=== PATIENT | female | born 1960 ===

== ENCOUNTER 2017-01-20 14:11 | Inpatient (IN) | payer MEDICARE, MEDICAID ==
[2017-01-20 14:18] VITALS: O2SAT 100
[2017-01-20] MEDS ORDERED: Sodium Chloride 0.9% 1,000 ML IV STA ×3 (14:39→19:37)
--- NOTE | 2017-01-20 14:44 | ED PDOC ---
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 Pt states she took meds because she wanted to sleep. Denies SI) Onset/Duration Of Symptoms: Hrs (1) Current Symptoms Are (Timing): Still Present Suicide/Self Injury Attempted (Context): Ingestion Severity: Moderate Past Medical History Vital Signs: Last Vital Signs Temp 97.4 F L 01/20/17 14:12 Pulse 65 01/20/17 14:12 Resp 14 01/20/17 14:12 BP 86/65 L 01/20/17 14:12 Pulse Ox 100 01/20/17 14:12 - Medical History PMH: Diabetes - Family History Family History: States: Unknown Family Hx - Home Medications Home Medications: Ambulatory Orders Medication Instructions Recorded Albuterol HFA [Ventolin HFA 90 2 puff IH Q4H PRN 01/20/17 mcg/actuation (8 g)] Alprazolam [Xanax] 2 mg PO BID 01/20/17 Alprazolam [Xanax] 4 mg PO HS 01/20/17 Divalproex [Depakote ER] 1,000 mg PO HS 01/20/17 Divalproex [Depakote ER] 500 mg PO DAILY 01/20/17 FLUoxetine [Prozac] 20 mg PO DAILY 01/20/17 Fluticasone/Salmeterol 500/50 1 puff IH Q12H 01/20/17 [Advair Diskus 500/50] Levothyroxine [Synthroid] 150 mcg PO DAILY 01/20/17 Losartan [Cozaar] 50 mg PO DAILY 01/20/17 Ranitidine HCl [Zantac] 150 mg PO HS 01/20/17 Saxagliptin HCl [Onglyza] 5 mg PO DAILY 01/20/17 Sertraline [Zoloft] 100 mg PO BID 01/20/17 Sulindac [Sulindac] 150 mg PO BID 01/20/17 Tiotropium [Spiriva] 18 mcg IH DAILY 01/20/17 buPROPion XL [Wellbutrin XL] 150 mg PO DAILY 01/20/17 oxyCODONE [oxyCODONE Immediate 30 mg PO Q4H PRN 01/20/17 Release Tab] - Allergies Allergies/Adverse Reactions: Allergies Allergy/AdvReac Type Severity Reaction Status Date / Time No Known Allergies Allergy Verified 01/20/17 14:12 Review of Systems ROS Statement: Except As Marked, All Systems Reviewed And Found Negative Physical Exam - Reviewed Nursing Documentation Reviewed: Yes Vital Signs Reviewed: Yes - Physical Exam Appears: Positive for: Non-toxic, No Acute Distress Head Exam: Positive for: ATRAUMATIC, NORMAL INSPECTION, NORMOCEPHALIC Skin: Positive for: Normal Color, Warm, DRY Eye Exam: Positive for: EOMI, Normal appearance, PERRL ENT: Positive for: Normal ENT Inspection Neck: Positive for: Normal, Painless ROM Cardiovascular/Chest: Positive for: Regular Rate, Rhythm Respiratory: Positive for: CNT, Normal Breath Sounds Gastrointestinal/Abdominal: Positive for: Normal Exam, Bowel Sounds, Soft Back: Positive for: Normal Inspection Extremity: Positive for: Normal ROM Neurologic/Psych: Positive for: Oriented. Negative for: Alert (Drowsy arousable ), Motor/Sensory Deficits - Laboratory Results Result Diagrams: 01/20/17 14:54 01/20/17 14:54 - ECG O2 Sat by Pulse Oximetry: 100 ED OBSERVATION Date of observation admission: 01/20/17 Time of observation admission: 16:41 - Observation admission statement Patient is being placed in observation because:: Drug ingestion Disposition - Clinical Impression Clinical Impression: Benzodiazepine misuse - Patient ED Disposition Is Patient to be Admitted: Transfer of Care - Disposition Disposition: Transfer of Care Disposition Time: 18:54 Condition: FAIR Patient Signed Over To: Naresh Toussaint
[2017-01-20 15:08] LABS: BASO # 0.1 K/uL (0.0-0.2); BASO % 2.3 % (0.0-2.0); EOS # 0.2 K/uL (0.0-0.7); EOS % 3.3 % (0.0-4.0); HEMATOCRIT 28.1 % (34.0-47.0); LYMPH # 2.4 K/uL (1.0-4.3); LYMPH % 49.5 % (20.0-40.0); MEAN CELL VOLUME 67.3 fl (81.0-99.0); MEAN CORPUSCULAR HEMOGLOBIN 20.9 pg (27.0-31.0); MEAN CORPUSCULAR HGB CONC 31.1 g/dL (33.0-37.0); MONO # 0.5 K/uL (0.0-0.8); MONO % 9.4 % (0.0-10.0); NEUT # 1.7 K/uL (1.8-7.0); NEUT % 35.5 % (50.0-75.0); NRBC % 0.1 % (0.0-0.0); RED CELL DISTRIBUTION WIDTH 21.5 % (11.5-14.5); WHITE BLOOD COUNT 4.9 K/uL (4.8-10.8)
[2017-01-20 15:20] LABS: ALCOHOL SERUM < 10 mg/dl (0-10); ALKALINE PHOSPHATASE 71 U/L (38-126); ALT/SGPT 30 U/L (9-52); AST/SGOT 29 U/L (14-36); BILIRUBIN,TOTAL 0.3 mg/dl (0.2-1.3); BLOOD UREA NITROGEN 9 mg/dl (7-17); CALCIUM 9.4 mg/dL (8.4-10.2); CARBON DIOXIDE 24 mmol/L (22-30); CHLORIDE 107 mmol/L (98-107); GFR AFRICAN-AMERICAN > 60; GLUCOSE,RANDOM 67 mg/dL (65-105); POTASSIUM 3.9 MMOL/L (3.6-5.0); SODIUM 143 mmol/l (132-148); TOTAL PROTEIN 7.6 G/DL (6.3-8.2)
--- NOTE | 2017-01-20 16:21 | RAD ---
HISTORY: cough COMPARISON: Comparison is made to the previous study dated 06/14/2012 FINDINGS: LUNGS: Technically suboptimal study. Suspicious for mild pulmonary vascular congestion. PLEURA: No significant pleural effusion identified, no pneumothorax apparent. CARDIOVASCULAR: Normal. OSSEOUS STRUCTURES: No significant abnormalities. VISUALIZED UPPER ABDOMEN: Normal. OTHER FINDINGS: None. IMPRESSION: Suboptimal study. Suspicious for pulmonary vascular congestion.
--- NOTE | 2017-01-20 19:30 | ED PDOC ---
- Laboratory Results Result Diagrams: 01/20/17 14:54 01/20/17 14:54 - ECG O2 Sat by Pulse Oximetry: 100 (RA) Pulse Ox Interpretation: Normal Medical Decision Making Medical Decision Making: Time: 19:00 --Pending revaluation. Time: 8:40 --Patient was evaluated by crisis and admitted for further stabilizing of depression. Medically stable for psychiatric admission Scribe Attestation: Documented by Addie Michael, acting as a scribe for Naresh Toussaint MD. Provider Scribe Attestation: All medical record entries made by the Scribe were at my direction and personally dictated by me. I have reviewed the chart and agree that the record accurately reflects my personal performance of the history, physical exam, medical decision making, and the department course for this patient. I have also personally directed, reviewed, and agree with the discharge instructions and disposition. Disposition Counseled Patient/Family Regarding: Studies Performed, Diagnosis - Clinical Impression Clinical Impression: Benzodiazepine misuse, Depression - POA Present On Arrival: None - Disposition Disposition: Routine/Home Disposition Time: 19:45 Condition: FAIR
[2017-01-20] MEDS ORDERED: Magnesium Hydroxide Susp 30 ml UD PO PRN (21:33)
[2017-01-20] MEDS ORDERED: Alum-Mag Hydrox-Simethicone Susp (30 mL) PO PRN (21:33)
[2017-01-20] MEDS ORDERED: DiphenhydrAMINE 50 mg/ml Inj IM PRN (21:33)
[2017-01-21 07:47] LABS: BASO # 0.1 K/uL (0.0-0.2); BASO % 1.3 % (0.0-2.0); EOS # 0.2 K/uL (0.0-0.7); EOS % 4.2 % (0.0-4.0); HEMATOCRIT 30.1 % (34.0-47.0); LYMPH # 2.5 K/uL (1.0-4.3); LYMPH % 48.6 % (20.0-40.0); MEAN CELL VOLUME 67.3 fl (81.0-99.0); MEAN CORPUSCULAR HEMOGLOBIN 20.9 pg (27.0-31.0); MEAN PLATELET VOLUME 9.6 fl (7.2-11.7); MONO # 0.4 K/uL (0.0-0.8); MONO % 7.4 % (0.0-10.0); NEUT % 38.5 % (50.0-75.0); RED CELL DISTRIBUTION WIDTH 22.2 % (11.5-14.5); WHITE BLOOD COUNT 5.1 K/uL (4.8-10.8)
[2017-01-21 07:55] LABS: IRON 20 ug/dL (37-170)
[2017-01-21 08:06] LABS: T4 3.38 ug/dl (5.5-11.0)
[2017-01-21 08:20] LABS: THYROID STIMULATING HORMONE 33.6 mIU/ML (0.46-4.68)
[2017-01-21] MEDS ORDERED: Albuterol HFA 90 mcg/actuation (8 g) IH PRN (10:53)
--- NOTE | 2017-01-21 12:48 | CP.PCM.CON ---
History of Present Illness - History of Present Illness History of Present Illness: Hospitalist Consult H&P (Patient was seen and examined with her Nurse present at 12:10 PM 01/21/17 [id number]) 56 year old female who presented with her family to [facility] ER after ingesting unknown substance 1 hour prior to her arrival. Patient denied SI. UDS in the ER indicated (+) Benzodiazepine. She was admitted to in-patient Psychiatry Unit for further management. ROS: NO chest pain, NO palpitations, NO SOB, NO dysphagia/odynophagia ("Thyroid Pain " present off and on for some time), NO abdominal pain, NO n/v/d/c, NO burning/ pain with unrination, NO lightheadedness/dizziness, NO headache, NO new changes in vision, NO new changes in hearing, (+) Numbness in the bilateral hands that comes and goes for some time, (+) Edema of legs (however none present on exam) PMHx: Depression, DM 2, Asthma, HTN, Hypothyroidism, GERD, Anemia likely secondary to Iron Deficiency, Rectal Bleeding PSHx: Bilatera Breast Augmentation, Liposuction, Left Shoulder Unspecified Surgery, Right Thumb Unsecified Surgery ALL: NKDA, NO known food allergies Medications: Please see list below Social: NOT working, (+) Tobacco 3 cig/day for 44 years, NO alcohol, NO illicit drugs Family Hx: Mom, Dad, and Brother all have DM 2 Exam: HEENT: NCA, EOMI, PERRLA, NO cervical lymphadenopathy, NO thyromegaly, Oral mucos and Nasal Turbinates are moist, NO pharyngeal erythema/exudate Cardio: NS1 and NS2, NO M/R/G Respiratory: CTA B/L, NO R/R/W GI: BSx4, Soft, NT, ND, NO HSM, NO guarding/rebound tenderness Ext: Pulses are strong and equal, NO edema, Capillary Refill is 2 seconds Neuro: CN II through XII are grossly intact Assessment and Plan: 1). Hx DM 2 Oglyza 5 mg PO 1x/day at home but this is not carried in our pharmacy. Therefore Januvia 100 mg PO 1x/day 2). Hx Asthma Aluberol 2 puff INH Q4H PRN SOB/Wheezing Spiriva 18 mcg Handihaler PO INH 1x/day Chest X Ray upon admission was suspicious for pulmonary vascular congestion but on my exam the lungs were CTA B/L NO R/R/W EKG was NSR at 58 bpm 3). Hx HTN Cozaar 50 mg PO 1x/day 4). Hyperlipidemia Lipid Panel done on 01/21/17 indicated LDL not at goal at 206 therefore Atorvastatin 10 mg PO 1x/day has been ordered and patient will need new Rx for this upon her discharge 5). Hx Hypothyroidism Low T4, Low Free T4, Low T3, and High TSH. Could this be secondary to patient not taking her medication at home? Levothyroxine 150 mcg PO 1x/day and she will need to have the thyroid blood work repeated in 1 month time. 6). Hx GERD She is on Zantac 150 mg PO QHS but this is not carried by our pharmacy therefore Pepcid 20 mg PO 1x/day 7). Anemia Likely Secondary to Iron Deficiency which is likely Secondary to History of Rectal Bleeding Patient states that she had a Colonoscopy 2 months ago by an unspecified doctor but could not tell me the results She will need to be instructed to follow up with this physician upon her discharge FeSO4 325 mg PO BID ordered for now 8). Depression Treatment as per Psychiatry Review of Systems - Review of Systems Review of Systems: Please see above Past Patient History - Past Social History Smoking Status: Light Smoker < 10 Cigarettes Daily - CARDIAC Hx Cardiac Disorders: Yes Hx Hypertension: Yes - PULMONARY Hx Asthma: Yes - NEUROLOGICAL Hx Vertigo: Yes - HEENT Hx Cataracts: Yes (?) - ENDOCRINE/METABOLIC Hx Endocrine Disorders: Yes Hx Diabetes Mellitus Type 2: Yes - PSYCHIATRIC Hx Anxiety: Yes Hx Depression: Yes Hx Substance Use: No - SURGICAL HISTORY Hx Surgeries: Yes Other/Comment: Breast cysts - ANESTHESIA Hx Anesthesia: Yes Hx Anesthesia Reactions: No Meds Allergies/Adverse Reactions: Allergies Allergy/AdvReac Type Severity Reaction Status Date / Time No Known Allergies Allergy Verified 01/20/17 14:12 - Medications Medications: Current Medications Acetaminophen (Tylenol 325mg Tab) 650 mg PO Q4 PRN PRN Reason: PAIN 1-7 Last Admin: 01/20/17 22:17 Dose: 650 mg Al Hydrox/Mg Hydrox/Simethicone (Maalox Plus 30 Ml) 30 ml PO Q4 PRN PRN Reason: Dyspepsia Albuterol (Ventolin Hfa 90 Mcg/Actuation (8 G)) 2 puff IH Q4H PRN PRN Reason: Shortness of Breath Atorvastatin Calcium (Lipitor) 10 mg PO DAILY DARCY Diphenhydramine HCl (Benadryl) 50 mg PO Q6 PRN PRN Reason: Extrapyramidal Symptoms Diphenhydramine HCl (Benadryl) 50 mg PO HS PRN PRN Reason: Sleep Last Admin: 01/20/17 22:21 Dose: 50 mg Diphenhydramine HCl (Benadryl) 50 mg IM Q6 PRN PRN Reason: Extrapyramidal S/S Unable PO Famotidine (Pepcid) 20 mg PO HS DARCY Ferrous Sulfate (Feosol) 325 mg PO BID DARCY Haloperidol (Haldol) 5 mg PO Q4 PRN PRN Reason: Agitation Haloperidol Lactate (Haldol) 5 mg IM Q4 PRN PRN Reason: Agitation, Unable to Take PO Insulin Human Regular (Humulin R) 0 units SC ACHS [facility] Levothyroxine Sodium (Synthroid) 150 mcg PO DAILY@0630 [facility] Lorazepam (Ativan) 2 mg PO Q4 PRN PRN Reason: Anxiety/Agitation Lorazepam (Ativan) 2 mg IM Q4 PRN PRN Reason: Anxiety/Agitation,Unable PO Losartan Potassium (Cozaar) 50 mg PO DAILY [facility] Magnesium Hydroxide (Milk Of Magnesia) 30 ml PO HS PRN PRN Reason: Constipation Sertraline HCl (Zoloft) 50 mg PO DAILY [facility] Last Admin: 01/21/17 09:57 Dose: 50 mg Sitagliptin Phosphate (Januvia) 100 mg PO DAILY [facility] Tiotropium [place]mond[place] (Spiriva) 18 mcg IH DAILY [facility] Physical Exam - Constitutional Additional comments: Please see above Results - Vital Signs Recent Vital Signs: Last Vital Signs Temp 97.7 F 01/21/17 06:00 Pulse 66 01/21/17 06:00 Resp 18 01/21/17 06:00 BP 109/69 01/21/17 06:00 Pulse Ox 100 01/20/17 21:55 - Labs Result Diagrams: 01/21/17 07:10 01/20/17 14:54 Labs: Laboratory Results - last 24 hr 01/20/17 01/21/17 01/21/17 20:53 06:34 07:10 WBC 5.1 RBC 4.48 Hgb 9.4 L Hct 30.1 L MCV 67.3 L MCH 20.9 L MCHC 31.0 L RDW 22.2 H Plt Count 246 MPV 9.6 Neut % (Auto) 38.5 L Lymph % (Auto) 48.6 H Rutherford % (Auto) 7.4 Eos % (Auto) 4.2 H Baso % (Auto) 1.3 Neut # 2.0 Lymph # 2.5 Rutherford # 0.4 Eos # 0.2 Baso # 0.1 POC Glucose (mg/dL) 124 H 90 Hemoglobin A1c 6.3 Iron 20 L TIBC 394 % Saturation 5 L Ferritin 5.9 Triglycerides 132 Cholesterol 307 H LDL Cholesterol Direct 206 H HDL Cholesterol 44 Vitamin B12 772 Free T4 0.39 L Thyroxine (T4) 3.38 L Total T3 0.474 L TSH 3rd Generation 33.60 H 01/21/17 11:45 WBC RBC Hgb Hct MCV MCH MCHC RDW Plt Count MPV Neut % (Auto) Lymph % (Auto) Rutherford % (Auto) Eos % (Auto) Baso % (Auto) Neut # Lymph # Rutherford # Eos # Baso # POC Glucose (mg/dL) 87 Hemoglobin A1c Iron TIBC % Saturation Ferritin Triglycerides Cholesterol LDL Cholesterol Direct HDL Cholesterol Vitamin B12 Free T4 Thyroxine (T4) Total T3 TSH 3rd Generation
[2017-01-21] MEDS: Insulin Regular 100 units/ml SC SCH ×2 (16:18→21:45)
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
--- NOTE | 2017-01-21 18:11 | CARD ---
APPROVED REPORT EKG Measurement Heart [id number] <Conclusion> Sinus bradycardia Nonspecific T wave abnormality Abnormal ECG
[2017-01-21 23:10] LABS: FOLATE 6.7 ng/mL
[2017-01-22] MEDS: Levothyroxine 150 MCG TAB PO SCH (06:48)
[2017-01-22] MEDS: Insulin Regular 100 units/ml SC SCH ×4 (09:11→21:29)
[2017-01-22] MEDS: buPROPion SR 150 MG TABLET PO SCH (09:12)
[2017-01-22] MEDS: Tiotropium 18 mcg Cap For Inhalation IH SCH (09:12)
--- NOTE | 2017-01-22 11:03 | PCM.PYCHPN ---
Psychiatric Progress Note - Psychiatric Progress Note Patient seen today, length of contact: with guinean speaking staff Patient Chief Complaint: i want to go home Problems Identified/Issues Discussed: pt minimizing her need for treatment. has submitted a 48 hour notice. she is waiting for screening for [facility] [place]. pt without behavioral disturbance on the unit. Medication Change: No Medical Record Reviewed: Yes Consults ordered or reviewed: dr. londono following pt, aware of thyroid studies Mental Status Examination - Cognitive Function Orientation: Person, Place, Situation, Time Memory: Intact Attention: WNL Concentration: WNL Association: WNL Fund of Knowledge: WN Decription of patient's judgement and insights: poor - Mood Mood: Depressed - Affect Affect: Broad - Speech Speech: Appropriate - Formal Thought Process Formal Thought Process: No Impairment Psychotic Thoughts and Behaviors: denies a/v hallucinations - Suicidal Ideation Suicidal Ideation: No Plan: pt is denying suicidal thoughts, but recent suicidal behaviors - Homicidal Ideation Homicidal Ideation: No Goal/Treatment Plan - Goal/Treatment Plan Need for Continued Stay: Remain at risks for inpatient hospitalization, Severe functional impairment Progress Toward Problem(s) and Goals/Treatment Plan: major depression recurrent pt to be screened by [facility] [place] as she is a potential danger to self and has signed a 48 hour notice Estimated Date of D/C: 01/23/17
[2017-01-22 15:51] VITALS: RESP 20
[2017-01-22 22:01] LABS: URINE BILIRUBIN NEGATIVE (NEGATIVE); URINE BLOOD NEGATIVE (NEGATIVE); URINE COLOR STRAW (YELLOW); URINE GLUCOSE (UA) NEG (Normal); URINE KETONE NEGATIVE (NEGATIVE); URINE LEUKOCYTE ESTERASE NEG Leu/uL (Negative); URINE PROTEIN NEGATIVE (NEGATIVE); URINE UROBILINOGEN 0.2-1.0 mg/dL (0.2-1.0); WBC URINE < 1 /hpf (0-5)
[2017-01-23] MEDS: Levothyroxine 150 MCG TAB PO SCH (06:15)
[2017-01-23] MEDS: Insulin Regular 100 units/ml SC SCH ×4 (06:35→21:28)
[2017-01-23] MEDS: buPROPion SR 150 MG TABLET PO SCH (08:39)
[2017-01-23] MEDS: Tiotropium 18 mcg Cap For Inhalation IH SCH (08:39)
--- NOTE | 2017-01-23 12:37 | PCM.PYCHPN ---
Psychiatric Progress Note - Psychiatric Progress Note Patient seen today, length of contact: with [place] speaking staff Patient Chief Complaint: i feel much better Problems Identified/Issues Discussed: pt has retracted her 48 hour notice. she states she feels better than when she was admitted. states all her suicidal behaviors were in past when she was using cocaine. she does report using while in [place] ago, but only "once" she is more interactive and less irritable today. she states she has outpt providers here in [place]. she reports fair sleep. Medication Change: No Medical Record Reviewed: Yes Mental Status Examination - Cognitive Function Orientation: Person, Place, Situation, Time Memory: Intact Attention: WNL Concentration: WNL Association: WNL Fund of Knowledge: WNL Decription of patient's judgement and insights: improved i/j - Mood Mood: Depressed - Affect Affect: Broad - Speech Speech: Appropriate - Formal Thought Process Formal Thought Process: No Impairment Psychotic Thoughts and Behaviors: denies a/v hallucinations - Suicidal Ideation Suicidal Ideation: No - Homicidal Ideation Homicidal Ideation: No Goal/Treatment Plan - Goal/Treatment Plan Need for Continued Stay: Remain at risks for inpatient hospitalization, Severe functional impairment Progress Toward Problem(s) and Goals/Treatment Plan: major depression recurrent continue current treatment Estimated Date of D/C: 01/23/17
[2017-01-24 05:59] VITALS: BP 94/60; PULSE 75; TEMP 97.5
[2017-01-24] MEDS: Insulin Regular 100 units/ml SC SCH ×2 (06:34→12:36)
[2017-01-24] MEDS: Tiotropium 18 mcg Cap For Inhalation IH SCH (08:36)
[2017-01-24] MEDS: buPROPion SR 150 MG TABLET PO SCH (08:37)
[2017-01-24] MEDS: Levothyroxine 150 MCG TAB PO SCH (08:41)
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
== END 2017-01-24 13:40 | disposition home or self-care (01) | DRG 885 ==
LOC: H.ER 14:11 → H.EROBSV 16:40 → OBSVTOIN 19:28 → INTOOBSV 19:28 → H.EROBSV 19:45 → H.ERHOLD 19:45 → OBSVTOIN 20:31 → H.ERHOLD 20:41 → H.STEP 21:07
PROVIDERS: ADMIT Psychiatry & Neurology Psychiatry; ATTEND Psychiatry & Neurology Psychiatry
PROC: GZ51ZZZ Individual Psychotherapy, Behavioral (ICD-10-PCS; 2017-01-20)
PROC: GZHZZZZ Group Psychotherapy (ICD-10-PCS; principal; 2017-01-21)
DX: F33.9 Major depressive disorder, recurrent, unspecified (principal); E11.9 Type 2 diabetes mellitus without complications; I10 Essential (primary) hypertension; E03.9 Hypothyroidism, unspecified; D50.9 Iron deficiency anemia, unspecified; E78.5 Hyperlipidemia, unspecified; J45.909 Unspecified asthma, uncomplicated; Z91.5 Personal history of self-harm; Z87.891 Personal history of nicotine dependence; Z79.899 Other long term (current) drug therapy; K21.9 Gastro-esophageal reflux disease without esophagitis

== ENCOUNTER 2017-02-17 19:05 | Emergency (ER) | payer MEDICARE, OTHER ==
[2017-02-17 19:13] VITALS: BP 107/81; PULSE 96; RESP 16; TEMP 98.4; O2SAT 97
--- NOTE | 2017-02-17 20:34 | ED PDOC ---
HPI: Psych/Substance Abuse Time Seen by Provider: 02/17/17 19:29 Chief Complaint (Nursing): Psychiatric Evaluation Chief Complaint (Provider): Psych Eval History Per: Patient, EMS History/Exam Limitations: no limitations Associated Symptoms: denies: Suicidal Thoughts Additional Complaint(s): Luciana Zavala is a 56 y/o female presenting to the ER on 02/17/2017 via BLS for a psychiatric evaluation. Per EMS, patient is brought in after her mother and sister had concerns the patient wanted to kill herself. She denies any suicidal or homicidal ideation, or any other psychiatric/medical complaints. Per patient , she reports she routinely sees a psychiatrist. She additionally reports she is on medications which helps her sleep at night. Of note, the patient's mother has lost a child in the past due to drug abuse, prompting her to call 911 whenever she expresses concerns for the patient. Past Medical History Reviewed: Historical Data, Nursing Documentation, Vital Signs Vital Signs: Last Vital Signs Temp 98.4 F 02/17/17 19:06 Pulse 96 H 02/17/17 19:06 Resp 16 02/17/17 19:06 BP 107/81 02/17/17 19:06 Pulse Ox 97 02/17/17 19:06 - Medical History PMH: Anxiety, Asthma, Bipolar Disorder, Depression, Diabetes, HTN, Hypercholesterolemia, Hyperthyroidism - Surgical History Surgical History: No Surg Hx - Family History Family History: States: Unknown Family Hx - Home Medications Home Medications: Ambulatory Orders Medication Instructions Recorded Albuterol HFA [Ventolin HFA 90 2 puff IH Q4H PRN 01/20/17 mcg/actuation (8 g)] Fluticasone/Salmeterol 500/50 1 puff IH Q12H 01/20/17 [Advair Diskus 500/50] Levothyroxine [Synthroid] 150 mcg PO DAILY 01/20/17 Losartan [Cozaar] 50 mg PO DAILY 01/20/17 Ranitidine HCl [Zantac] 150 mg PO HS 01/20/17 Saxagliptin HCl [Onglyza] 5 mg PO DAILY 01/20/17 Sertraline [Zoloft] 100 mg PO BID 01/20/17 Sulindac 150 mg PO BID 01/20/17 Tiotropium [Spiriva] 18 mcg IH DAILY 01/20/17 Atorvastatin [Lipitor] 10 mg PO DAILY #30 tab 01/24/17 Ferrous Sulfate [Feosol] 325 mg PO BID tab 01/24/17 Sertraline [Zoloft] 50 mg PO DAILY #30 tab 01/24/17 buPROPion XL [Wellbutrin XL] 150 mg PO DAILY #30 t24 01/24/17 - Allergies Allergies/Adverse Reactions: Allergies Allergy/AdvReac Type Severity Reaction Status Date / Time No Known Allergies Allergy Verified 02/17/17 19:06 Review of Systems ROS Statement: Except As Marked, All Systems Reviewed And Found Negative Psych: Positive for: Other ((-) HI). Negative for: Suicidal ideation Physical Exam - Reviewed Nursing Documentation Reviewed: Yes Vital Signs Reviewed: Yes - Physical Exam Appears: Positive for: Non-toxic, No Acute Distress Head Exam: Positive for: ATRAUMATIC, NORMOCEPHALIC Skin: Positive for: Normal Color Eye Exam: Positive for: Normal appearance Neck: Positive for: Normal, Painless ROM, Supple Cardiovascular/Chest: Positive for: Regular Rate, Rhythm. Negative for: Murmur Respiratory: Positive for: Normal Breath Sounds. Negative for: Respiratory Distress Extremity: Positive for: Normal ROM. Negative for: Deformity Neurologic/Psych: Positive for: Alert, Oriented. Negative for: Motor/Sensory Deficits - ECG O2 Sat by Pulse Oximetry: 97 Medical Decision Making Medical Decision Makin:29 Initial Impression- Psychiatric Evaluation Initial Plan- * Crisis Evaluation, see note. Documented by Lefty Frausto, acting as a scribe for Griselda Montes PA-C All medical record entries made by the Scribe were at my direction and personally dictated by me. I have reviewed the chart and agree that the record accurately reflects my personal performance of the history, physical exam, medical decision making, and the department course for this patient. I have also personally directed, reviewed, and agree with the discharge instructions and disposition. Receiving Sign Disposition - Clinical Impression Clinical Impression: Mood disorder - Patient ED Disposition Is Patient to be Admitted: No - Disposition Disposition: Routine/Home Disposition Time: 20:56 Condition: STABLE Instructions: Mood Disorders (ED) - POA Present On Arrival: None
== END 2017-02-17 20:51 | disposition home or self-care (01) ==
LOC: H.ER 19:05
DX: F43.20 Adjustment disorder, unspecified (principal); E05.90 Thyrotoxicosis, unspecified without thyrotoxic crisis or storm; E11.9 Type 2 diabetes mellitus without complications; E78.00 Pure hypercholesterolemia, unspecified; F31.9 Bipolar disorder, unspecified; F41.9 Anxiety disorder, unspecified; I10 Essential (primary) hypertension; J45.909 Unspecified asthma, uncomplicated

== ENCOUNTER 2017-09-24 20:32 | Emergency (ER) | payer MEDICARE, OTHER ==
[2017-09-24 20:35] VITALS: BP 123/74; PULSE 78; RESP 16; TEMP 96.5; O2SAT 99
--- NOTE | 2017-09-24 20:43 | ED PDOC ---
HPI: Psych/Substance Abuse Time Seen by Provider: 09/24/17 20:40 Chief Complaint (Nursing): Alcohol Ingestion Chief Complaint (Provider): etoh, SOB History Per: Patient, EMS, Family Additional Complaint(s): 57 year old female presents to ED via EMS acutely intoxicated. She has history of asthma and states she is out her inhaler. Patient denies any chest pain. Patient, upon arrival, states she wants to go home. Past Medical History Reviewed: Historical Data, Nursing Documentation, Vital Signs Vital Signs: Last Vital Signs Temp 96.5 F L 09/24/17 20:33 Pulse 78 09/24/17 20:33 Resp 16 09/24/17 20:33 BP 123/74 09/24/17 20:33 Pulse Ox 99 09/24/17 20:33 - Medical History PMH: Anxiety, Asthma, Bipolar Disorder, Depression, Diabetes, HTN, Hypercholesterolemia, Hyperthyroidism - Surgical History Other surgeries: breast augmentation - Family History Family History: States: Unknown Family Hx - Living Arrangements Living Arrangements: With Family - Social History Current smoker - smoking cessation education provided: No Alcohol: Social Drugs: Denies - Home Medications Home Medications: Ambulatory Orders Medication Instructions Recorded Albuterol HFA [Ventolin HFA 90 2 puff IH Q4H PRN 01/20/17 mcg/actuation (8 g)] Fluticasone/Salmeterol 500/50 1 puff IH Q12H 01/20/17 [Advair Diskus 500/50] Levothyroxine [Synthroid] 150 mcg PO DAILY 01/20/17 Losartan [Cozaar] 50 mg PO DAILY 01/20/17 Ranitidine HCl [Zantac] 150 mg PO HS 01/20/17 Saxagliptin HCl [Onglyza] 5 mg PO DAILY 01/20/17 Sertraline [Zoloft] 100 mg PO BID 01/20/17 Sulindac 150 mg PO BID 01/20/17 Tiotropium [Spiriva] 18 mcg IH DAILY 01/20/17 Atorvastatin [Lipitor] 10 mg PO DAILY #30 tab 01/24/17 Ferrous Sulfate [Feosol] 325 mg PO BID tab 01/24/17 Sertraline [Zoloft] 50 mg PO DAILY #30 tab 01/24/17 buPROPion XL [Wellbutrin XL] 150 mg PO DAILY #30 t24 01/24/17 Albuterol HFA [Ventolin HFA 90 1 puff IH ASDIR #1 unit 09/24/17 mcg/actuation (8 g)] Ondansetron [Zofran Odt] 4 mg PO ASDIR PRN #10 odt 09/24/17 - Allergies Allergies/Adverse Reactions: Allergies Allergy/AdvReac Type Severity Reaction Status Date / Time Penicillins Allergy RASH Verified 09/24/17 20:42 Review of Systems ROS Statement: Except As Marked, All Systems Reviewed And Found Negative Respiratory: Positive for: Shortness of Breath, Wheezing Psych: Positive for: Other (etoh) Physical Exam - Reviewed Nursing Documentation Reviewed: Yes Vital Signs Reviewed: Yes - Physical Exam Appears: Positive for: Well, Non-toxic, No Acute Distress Skin: Negative for: Rash Eye Exam: Positive for: Normal appearance Cardiovascular/Chest: Positive for: Regular Rate, Rhythm Respiratory: Positive for: Wheezing. Negative for: Accessory Muscle Use, Crackles, Rales, Rhonchi, Respiratory Distress Neurologic/Psych: Positive for: Alert, Other (intoxicated, answers some questions appropriately) - ECG Interpretation Of ECG: NSR 76 bpm, no acute finding, reviewed by PA and ED attending. O2 Sat by Pulse Oximetry: 99 Pulse Ox Interpretation: Normal Medical Decision Making Medical Decision Makin57 year old intoxicated female with shortness of breath. Patient arrives with sober family member at bedside. Patient vomited x 1 upon arrival. She does not want blood work obtained Plan: IM zofran Duoneb x 1 Patient states she feels better after meds given and she is asking to leave. Patient's family member at bedside agrees to assume responsibility of patient and take her home given that she is intoxicated. Patient is stable for discharge with family member. Rx zofran and ventolin inhaler given. Disposition - Clinical Impression Clinical Impression: Alcohol intoxication, Asthma - Patient ED Disposition Is Patient to be Admitted: No Counseled Patient/Family Regarding: Studies Performed, Diagnosis, Need For Followup, Rx Given - Disposition [facility]errals: [facility] [Outside] Disposition: Routine/Home Disposition Time: 21:27 Condition: STABLE Additional Instructions: Take rx meds as directed. Drink plenty of fluids. Follow up as needed with clinic or primary care doctor. Prescriptions: Albuterol HFA [Ventolin HFA 90 mcg/actuation (8 g)] 1 puff IH ASDIR #1 unit Ondansetron [Zofran Odt] 4 mg PO ASDIR PRN #10 odt PRN Reason: Nausea/Vomiting Instructions: Alcohol Intoxication (ED), Asthma (ED) Forms: [employer] Connect (Belarusian) Print Language: ERITREAN
[2017-09-24] MEDS ORDERED: Albuterol-Ipratrop 3 mg / 0.5 (3 ml) UD INH STA (20:53)
[2017-09-24] MEDS ORDERED: Albuterol-Ipratrop 3 mg / 0.5 (3 ml) UD ONE (20:58)
== END 2017-09-24 21:34 | disposition home or self-care (01) ==
LOC: H.ER 20:32
DX: F10.129 Alcohol abuse with intoxication, unspecified (principal); J45.909 Unspecified asthma, uncomplicated; E05.90 Thyrotoxicosis, unspecified without thyrotoxic crisis or storm; E11.9 Type 2 diabetes mellitus without complications; E78.00 Pure hypercholesterolemia, unspecified; F31.9 Bipolar disorder, unspecified; F41.9 Anxiety disorder, unspecified; I10 Essential (primary) hypertension; Z88.0 Allergy status to penicillin
CPT/HCPCS: 94640; 96372; 99281; J2405